=== PATIENT | female | born 1980 | race African-American/Black ===

== ENCOUNTER 2017-03-16 14:29 | Emergency (ER) | payer BC ==
[2017-03-16] MEDS ORDERED: Ketorolac 60 MG/2 ML SDV IM ONE (15:06)
[2017-03-16 15:16] VITALS: BP 126/77
[2017-03-16 16:13] LABS: CHLORIDE,CL 98 mmol/L (98-107); SODIUM,NA 137 mmol/L (136-145)
--- NOTE | 2017-03-19 08:50 | ER ---
Date of Service: 03/16/2017 SUBJECTIVE: Juany presents to the emergency room with complaints of cough, chest congestion, fever, chills, and headache. The patient states that she has been experiencing this since this past Sunday. She states that she took Tylenol at approximately 5 o'clock this morning and has not had anything since that time. She states that she does have a cough that is nonproductive as well. She denies any skin rashes. To note, she is an employee at the [employer] and has been exposed to influenza in the past. She states that she has had her influenza vaccination. PAST MEDICAL HISTORY: None. MEDICATIONS: None. ALLERGIES: NKDA. REVIEW OF SYSTEMS: General: Positive for fever and chills. HEENT: Positive for sinus congestion and sore throat. Respiratory: No shortness of breath. She states that she does have nonproductive cough. Cardiac: Denies any substernal chest pain. No jaw, arm, neck, or back pain. GI: No nausea, vomiting, or diarrhea. No melena, hematochezia, or hematemesis. Neurologic: Denies any nuchal rigidity. Denies any other neck or back pain. PHYSICAL EXAMINATION: General: This is a 36-year-old female patient, who is in no acute distress. Vital Signs: Blood pressure is 126/77, pulse rate is 104, temperature is 38.6, blood pressure is 126/77, respiratory rate is 20, O2 saturations 99%. Skin: Warm, pink, and dry. HEENT: Head is normocephalic, atraumatic. Eyes, PERRLA. Extraocular movements are intact. Ears, TMs are clear. Mouth, oral mucosa is moist. Lungs: Clear to auscultation. Heart: Regular rate and rhythm. Normal S1, S2. No S3, S4, murmurs, clicks, or rubs. Abdomen: Soft, nontender. There is no hepatosplenomegaly or masses noted. Extremities: Without edema. Neurologic: She is alert and oriented, answers all questions appropriately. Her speech is fluent. Her gait is within normal limits. DIAGNOSTIC DATA: Influenza A and B were obtained. She is positive for influenza A. PA and lateral chest x-ray was obtained. No evidence of any acute infiltrate. A 12-lead EKG was obtained showing no acute ST or T-wave changes. WBC is 7.8, hemoglobin is 12.2, platelets are 150. Chemistry, sodium is 137, potassium is 3.5, chloride is 98, bicarb is 28, BUN is 5, creatinine is 0.8. Creatinine clearance is 83.14. GFR is greater than 60. Glucose is 89, lactic acid is 2.0, calcium is 8.6, corrected calcium is 8.84, total bilirubin is 0.4, AST is 21, ALT is 37, alkaline phosphatase is 60, C-reactive protein elevated at 9.2, total protein is 8.5, albumin is 3.7. ASSESSMENT: Influenza B. PLAN: Tamiflu 75 mg 1 twice daily for 5 days. Drink plenty of fluids. Tylenol, ibuprofen for fever and discomfort. The patient was advised to stay home from work until 24 hours after her last fever. All questions were answered. MWK: 03/16/2017 16:42:09 MODL: 03/16/2017 22:33:33 /[id number]
== END 2017-03-16 16:35 | disposition home or self-care (01) ==
LOC: VM.ED 14:29
DX: J10.1 Influenza due to other identified influenza virus with other respiratory manifestations (principal)
CPT/HCPCS: 36415; 71020; 80053; 83605; 85025; 86140; 87040; 87081; 87804; 87880; 93005; 96372; 99284; J1885